=== PATIENT | female | born 2000 | race African-American/Black ===

== ENCOUNTER 2025-03-01 09:33 | Emergency (ER) | payer OTHER ==
[~2025-03-01] VITALS: Ht 180.3 cm; Wt 77.1 kg
[2025-03-01] MEDS ORDERED: APIXABAN 5 MG TABLET ONE (11:29)
[2025-03-01 11:32] LABS: PREGNANCY TEST URINE QUAL NEGATIVE (NEGATIVE)
[2025-03-01] MEDS: APIXABAN 5 MG TABLET PO STA (11:35)
[2025-03-01] MEDS ORDERED: APIX5TAB4 PO (12:05)
[2025-03-01 12:17] VITALS: BP 140/76; TEMP 98.7; O2SAT 100
== END 2025-03-01 12:17 ==
LOC: ER 09:34
DX: I82.432 Acute embolism and thrombosis of left popliteal vein (principal); I10 Essential (primary) hypertension; F19.10 Other psychoactive substance abuse, uncomplicated; M79.605 Pain in left leg; M79.671 Pain in right foot; Z59.00 Homelessness unspecified
CPT/HCPCS: 73630-TC; 84703-TC; 93971-TC

== ENCOUNTER 2025-05-05 14:03 | Emergency (ER) | payer OTHER ==
[~2025-05-05] VITALS: Ht 180.3 cm; Wt 78.0 kg
[~2025-05-05 14:03] MED LIST: APIX5TAB4 PO
[2025-05-05 16:36] LABS: APPEARANCE,URINE CLEAR (CLEAR); BLOOD, URINE Trace-intact Ery/uL (NEGATIVE); LEUKOCYTE ESTERASE ,URINE Large (NEGATIVE); UGLUCOSE Negative (NEGATIVE)
[2025-05-05 16:37] LABS: NITRITE, URINE NEGATIVE (NEGATIVE)
[2025-05-05 16:38] LABS: ADD URINE CULTURE YES; PREGNANCY TEST URINE QUAL NEGATIVE (NEGATIVE); SQUAMOUS EPITHELIAL CELL,UR Moderate /HPF (None Seen)
[2025-05-05] MEDS ORDERED: NITR100C6 PO (16:58)
[2025-05-05 17:59] VITALS: BP 121/75; TEMP 98.5; O2SAT 99
== END 2025-05-05 18:03 | disposition home or self-care (01) ==
LOC: ER 14:05
DX: R10.9 Unspecified abdominal pain (principal); I10 Essential (primary) hypertension; Z59.01 Sheltered homelessness; Z79.01 Long term (current) use of anticoagulants; Z60.2 Problems related to living alone
CPT/HCPCS: 81001; 84703-TC; 87086-TC

== ENCOUNTER 2025-05-20 08:17 | Emergency (ER) | payer OTHER ==
[~2025-05-20] VITALS: Ht 180.3 cm; Wt 68.0 kg
[2025-05-20 09:41] LABS: PLATELET COUNT (AUTO) 283 K/uL (150-450); RED BLOOD CELL COUNT(AUTO) 4.33 MIL/uL (4.0-5.2); RED CELL DISTRIBUTION WIDTH 15.6 % (11.5-15.0); WHITE BLOOD COUNT (AUTO) 5.9 K/uL (4.3-11.0)
[2025-05-20 09:53] LABS: CALCIUM, SERUM 9.3 mg/dL (8.5-10.1); CREATININE 0.8 mg/dL (0.6-1.3); SODIUM SERUM 137 mmol/L (136-145); UREA NITROGEN, BLOOD 7 mg/dL (7-18)
[2025-05-20 09:55] LABS: ALCOHOL, BLOOD < 3 mg/dL (0-10); ASPARTATE AMINOTRANSFERASE 14 U/L (15-37); TOTAL PROTEIN, SERUM 7.2 g/dL (6.4-8.2)
[2025-05-20 10:03] LABS: APPEARANCE,URINE CLEAR (CLEAR); BLOOD, URINE NEGATIVE Ery/uL (NEGATIVE); LEUKOCYTE ESTERASE ,URINE 1+ (NEGATIVE); NITRITE, URINE NEGATIVE (NEGATIVE); UGLUCOSE NEGATIVE (NEGATIVE)
[2025-05-20 10:12] LABS: BARBITURATE, URINE NEGATIVE (NEGATIVE); BENZODIAZEPINE, URINE NEGATIVE (NEGATIVE); CANNABINOID, URINE NEGATIVE (NEGATIVE); COCCAINE, URINE NEGATIVE (NEGATIVE); OPIATE, URINE NEGATIVE (NEGATIVE)
[2025-05-20 10:20] LABS: ADD URINE CULTURE YES
[2025-05-20 10:38] LABS: AMPHETAMINE, URINE POSITIVE (NEGATIVE)
[2025-05-20 15:00] VITALS: BP 131/64; TEMP 98; O2SAT 100
== END 2025-05-20 17:20 ==
LOC: ER 08:20
DX: F22 Delusional disorders (principal); I10 Essential (primary) hypertension; R10.2 Pelvic and perineal pain; Z59.00 Homelessness unspecified; Z79.01 Long term (current) use of anticoagulants; Z79.899 Other long term (current) drug therapy; Z20.822 Contact with and (suspected) exposure to COVID-19
CPT/HCPCS: 36415; 80048-TC; 80076-TC; 81001; 84702-TC; 85025-TC; 87086-TC; G0480

== ENCOUNTER → 2025-05-20 | Emergency (ER) | payer OTHER ==
[~2025-05-20] VITALS: Ht 175.3 cm; Wt 68.0 kg
[~2025-05-20] MED LIST changes: +NITR100C6 PO
[2025-05-20 17:09] VITALS: BP 138/71; TEMP 98; O2SAT 100
== END | disposition left against medical advice (07) ==
LOC: ER 19:32
DX: Z53.21 Procedure and treatment not carried out due to patient leaving prior to being seen by health care provider (principal)

== ENCOUNTER 2025-06-06 11:28 | Emergency (ER) | payer OTHER ==
[~2025-06-06] VITALS: Ht 180.3 cm; Wt 72.6 kg
[2025-06-06 11:48] VITALS: TEMP 98.2
[2025-06-06 13:24] VITALS: BP 130/84; O2SAT 98
== END 2025-06-06 13:24 | disposition home or self-care (01) ==
LOC: ER 11:39
DX: R45.6 Violent behavior (principal); I10 Essential (primary) hypertension; Z59.00 Homelessness unspecified; Z79.01 Long term (current) use of anticoagulants

== ENCOUNTER 2025-06-08 03:43 | Emergency (ER) | payer OTHER ==
[~2025-06-08] VITALS: Ht 165.1 cm; Wt 70.3 kg
== END 2025-06-08 05:35 | disposition left against medical advice (07) ==
LOC: ER 03:44
DX: R52 Pain, unspecified (principal); Z53.21 Procedure and treatment not carried out due to patient leaving prior to being seen by health care provider